=== PATIENT | female | born 1955 | race Caucasian/White ===

== ENCOUNTER 2019-10-20 05:52 | Inpatient (IN) | payer OTHER ==
[2019-10-20] MEDS ORDERED: CELECOXIB 200 MG CAPSULE ONE (06:16)
[2019-10-20] MEDS ORDERED: oxyCODONE HCL 10 MG SUSTAINED ACTING TABLET ONE (06:16)
[2019-10-20] MEDS ORDERED: PANTOPRAZOLE 40 MG TABLET ONE (06:16)
[2019-10-20 06:51] VITALS: BMI 26.2
[2019-10-20] MEDS ORDERED: SODIUM CHLORIDE 0.9% P/F 10 ML VIAL IJ ONE (07:10)
[2019-10-20] MEDS ORDERED: BUPIVACAINE LIPOSOME/PF (EXPAREL) 266 MG/20 ML VIAL ONE (07:10)
[2019-10-20] MEDS ORDERED: MIDAZOLAM HCL 2 MG/2 ML SINGLE DOSE VIAL ONE ×3 (07:10→07:36)
[2019-10-20] MEDS ORDERED: TRANEXAMIC ACID 1000 MG/10 ML VIAL ONE ×3 (07:14→10:21)
[2019-10-20] MEDS ORDERED: VANCOMYCIN 1,000 MG VIAL (RESTRICTED TO ID ONLY) ONE (07:14)
[2019-10-20] MEDS ORDERED: ceFAZolin SODIUM 1 GM VIAL ONE ×2 (07:14→07:36)
[2019-10-20] MEDS ORDERED: DEXAMETHASONE SOD PHOSPHATE/PF 10 MG/ML SDV ONE (07:25)
[2019-10-20] MEDS ORDERED: LIDOCAINE 1% P/F 10 MG/ML VIAL ONE (07:26)
[2019-10-20] MEDS ORDERED: DEXAMETHASONE SOD PHOSPHATE 4 MG/1 ML VIAL ONE (07:36)
[2019-10-20] MEDS ORDERED: LIDOCAINE HCL/PF 2% SDV 5ML VIAL ONE (07:36)
[2019-10-20] MEDS ORDERED: PROPOFOL 20 ML ONE ×3 (07:36)
[2019-10-20] MEDS ORDERED: EPHEDRINE SULFATE/0.9% NACL/PF 50 MG/10 ML SYRINGE NR ONE (07:36)
[2019-10-20] MEDS ORDERED: ONDANSETRON 4 MG/2 ML VIAL ONE (07:36)
--- NOTE | 2019-10-20 07:47 | HP ---
Admitting History and Physical - Admission Chief Complaint: right hip ostesoarthritis x years History of Present Illness: 64 year old female presents in regard to their right hip. Long-standing history of right hip osteoarthritis. Patient complains of pain, limited range of motion , difficulty ambulating, and difficulty with activities of daily living. Patient has failed conservative treatment options including PO medications, activity modification, injections, and exercise programs. At this point, patient like to proceed with surgical intervention, right total hip arthroplasty MAKOplasty. History Source: Patient - Past Medical History ...: No Musculoskeletal: Yes: Osteoarthritis - Past Surgical History Additional Past Surgical History: See history & physical. - Smoking History Smoking history: Current every day smoker Have you smoked in the past 12 months: Yes Aproximately how many cigarettes per day: 10 - Alcohol/Substance Use Hx Alcohol Use: No Home Medications - Allergies Allergies/Adverse Reactions: Allergies Allergy/AdvReac Type Severity Reaction Status Date / Time No Known Allergies Allergy Verified 10/20/19 06:46 - Home Medications Home Medications: Ambulatory Orders Acetaminophen [Tylenol -] 1,000 mg PO PRN PRN 10/20/19 Review of Systems - Review of Systems Musculoskeletal: reports: Decreased ROM (right hip), Joint Pain (right hip) Physical Examination Vital Signs: Vital Signs Temperature 97.8 F 10/20/19 06:49 Pulse Rate 72 10/20/19 06:49 Respiratory Rate 16 10/20/19 06:49 Blood Pressure 119/79 10/20/19 06:49 O2 Sat by Pulse Oximetry (%) 95 10/20/19 07:01 Constitutional: Yes: Well Nourished, No Distress Eyes: Yes: Conjunctiva Clear HENT: Yes: Atraumatic Neck: Yes: Supple Cardiovascular: Yes: Regular Rate and Rhythm Respiratory: Yes: Regular Gastrointestinal: Yes: Soft ...Rectal Exam: Yes: Deferred Musculoskeletal: Yes: Joint Stiffness (right hip), Other (LROM right hip) Assessment/Plan 64 year old female presents in regard to their right hip. Long-standing history of right hip osteoarthritis. Patient complains of pain, limited range of motion , difficulty ambulating, and difficulty with activities of daily living. Patient has failed conservative treatment options including PO medications, activity modification, injections, and exercise programs. At this point, patient like to proceed with surgical intervention, right total hip arthroplasty MAKOplasty. Pros, cons, risks, benefits, and alternatives of a right total hip arthroplasty MAKOplasty were discussed with the patient at length. Patient confirms their understanding and consents to proceed with a right total hip arthroplasty MAKOplasty.
[2019-10-20] MEDS ORDERED: oxyCODONE HCL 10 MG SUSTAINED ACTING TABLET PO ONE (08:00)
[2019-10-20] MEDS ORDERED: CEFAZOLIN 2 GM in DEXTROSE 5%-WATER - 50 ML IVPB ONE (08:00)
[2019-10-20] MEDS ORDERED: PANTOPRAZOLE 40 MG TABLET PO ONE (08:00)
[2019-10-20] MEDS ORDERED: TRANEXAMIC ACID 1000 MG/10 ML VIAL IVPUSH ONE (08:00)
[2019-10-20] MEDS ORDERED: CELECOXIB 200 MG CAPSULE PO ONE (08:00)
[2019-10-20] MEDS ORDERED: BUPIVICAINE 0.25%/MORPH PF/KETOROLAC - 51ML DISP.SYRINGE IA ONE ×3 (08:00→10:13)
[2019-10-20] MEDS ORDERED: BUPIVACAINE HCL/PF 0.5% (5 MG/ML) 30 ML VIAL IJ ONE (08:30)
[2019-10-20] MEDS ORDERED: VANCOMYCIN 1,000 MG VIAL (RESTRICTED TO ID ONLY) IVPB ONE (10:11)
[2019-10-20] MEDS ORDERED: TRANEXAMIC ACID 1000 MG/10 ML VIAL IVPB ONE (10:11)
[2019-10-20] MEDS ORDERED: KETOROLAC TROMETHAMINE 30 MG/1 ML VIAL ONE (11:03)
[2019-10-20] MEDS ORDERED: ACETAMINOPHEN INJECTION 100 ML IVPB ONE (11:04)
[2019-10-20] MEDS ORDERED: traMADol HCL 50 MG TABLET ONE (11:04)
[2019-10-20] MEDS ORDERED: ONDANSETRON 4 MG/2 ML VIAL IVPUSH PRN ×2 (11:04→11:13)
[2019-10-20] MEDS ORDERED: oxyCODONE HCL 5 MG TABLET PO PRN (11:07)
--- NOTE | 2019-10-20 11:07 | OP ---
Operative Note - Note: Operative Date: 10/20/19 Pre-Operative Diagnosis: right hip OA Operation: right KELTON OLIVIA Post-Operative Diagnosis: Same as Pre-op Surgeon: Tato Patricia Medical Review Coordinator: Jodi Stoner Anesthesia: Spinal Estimated Blood Loss (mls): 200
[2019-10-20] MEDS ORDERED: MAGNESIUM HYDROX 2400MG/30ML ORAL SUSPENSION 30 ML CUP PO PRN (11:13)
[2019-10-20] MEDS ORDERED: MAG HYDROX/AL HYDROX/SIMETH 30 ML UNIT-DOSE CUP PO PRN (11:13)
[2019-10-20] MEDS ORDERED: LACTATED RINGERS SOLUTION 1,000 ML IV SCH ×2 (11:15)
[2019-10-20] MEDS: KETOROLAC TROMETHAMINE 30 MG/1 ML VIAL IVPUSH SCH ×3 (11:25→23:33)
[2019-10-20] MEDS: ACETAMINOPHEN 1000 MG/100 ML VIAL (NON FORMULARY) IVPB ONE (11:27)
[2019-10-20] MEDS: traMADol HCL 50 MG TABLET PO SCH ×3 (11:46→23:34)
--- NOTE | 2019-10-20 11:55 | SPEC ---
DATE OF OPERATION: 10/20/2019 PREOPERATIVE DIAGNOSIS: Right hip osteoarthritis. POSTOPERATIVE DIAGNOSIS: Right hip osteoarthritis. PROCEDURE: Right total hip replacement with MAKOplasty robotic navigation. ATTENDING: Maxime Denton MD SENIOR RESIDENT CARE DIRECTOR: LUIS San ANESTHESIA: Spinal plus sedation. ESTIMATED BLOOD LOSS: 200 mL. COMPLICATIONS: None. DISPOSITION: The patient was transferred to the PACU in stable condition. IMPLANTS USED: Monse Accolade II size 8 femoral component, Monse Trident II 54-mm acetabular component with MDM bipolar head ball and liner with inner ceramic +4-mm offset head ball. INDICATIONS: This is a 64-year-old female who presented to the office complaining of severe right hip pain. She was seen and examined by Dr. Denton and diagnosed with severe right hip osteoarthritis. The patient was initially treated conservatively with nonoperative management, but continued to have severe pain and ambulatory dysfunction. She was, therefore, indicated for a right total hip replacement. The risks, benefits, and alternatives to the procedure were explained to the patient in great detail, and she elected to proceed with the surgery. On the day of surgery, the patient was taken to the operating room and placed on the OR table. Spinal anesthesia was administered by the anesthesiologist. The patient was then positioned in the lateral decubitus position on the table and all bony prominences were padded. An axillary roll was placed. The operative hip was then prepped and draped in the usual sterile fashion and intravenous antibiotics were given for infection prophylaxis. A surgical time-out was then performed with the team, and the patients identity, procedure, side, availability of implants, and the administration of antibiotics were confirmed. An approximately 15-cm longitudinal incision was made through the skin centered on the greater trochanter of the hip. This dissection was carried down through the subcutaneous tissues to the deep fascia. This fascia was then incised and a Cobra was placed around the inferior femoral neck. Electrocautery was used to reflect the anterior 40% of the gluteus medius and minimus starting at the musculotendinous junction and leaving a cuff for closure. This was reflected to reveal the capsule of the hip joint. An anterior capsulectomy was performed and the femoral head and neck were visualized. Grade 4 changes were noted diffusely throughout the joint. At this point, three small stab incisions were made superior to the main incision along the iliac crest. Three self-drilling Steinmann pins were then placed and the SquareHub pelvic array was attached. Reference points on the limb were then entered into the robotic device and the limb length deficiency, offset, and femoral neck resection level were then calculated by the software. The hip was then dislocated with traction and external rotation. An oscillating saw was used to make the femoral neck cut at the level previously templated, and the femoral head was removed. Attention was then turned to the acetabulum. Retractors were then placed around the acetabulum and the labrum was removed. An acetabular checkpoint pin and the SquareHub software were used to register the contours of the acetabulum. The acetabulum was then reamed in a single stage to the preoperatively templated size using the Eddie robotic arm. The appropriately sized cup was then impacted and had solid fixation as well as the preset inclination and version of 40 and 20 degrees, respectively. A polyethylene liner was then placed in the cup. Attention was then turned back to the femur, which was externally rotated for improved visualization. A femoral neck elevator was used to present the femoral neck cut, a box osteotome was used to enter the femoral canal, and a canal finder was used to go down the femoral shaft. The Eddie broaches were used sequentially until the optimal scratch fit was achieved. This correlated with the preoperatively templated size. From here, several different offset head and neck configurations were tested until excellent stability and length were obtained. These measurements were quantified using the SquareHub software. All trial components were then removed, the femur was copiously irrigated, and the final components were placed. Leg length and stability were checked again and found to be excellent. Irrigation was performed again. Wound closure was started by repairing the abductor muscles with a no. 2 FiberWire stitch in a Krackow configuration passed through bone tunnels in the greater trochanter and tied over a bony bridge. This repair was then reinforced with a 0 V-Loc 180 barbed suture. Next, no. 1 Polysorb and 0 V-Loc 180 were used to close the fascia. The deep subcutaneous tissue was closed with no. 1 Polysorb sutures, and 2-0 Polysorb was used for the superficial subcutaneous tissue. The skin was closed using both 3-0 V-Loc 90 suture in a running subcuticular fashion and SwiftSet skin adhesive. The Eddie array and pins were removed from the iliac crest and the stab incision sites were irrigated and closed with 4-0 Polysorb sutures and SwiftSet skin adhesive. Once this was completed, a sterile dressing was applied. The patient was then awakened and taken to the PACU in stable condition. ADDENDUM: After final implants were placed, a dilute Betadine soak was performed for 3 minutes. Following this, the wound was thoroughly irrigated with normal saline via pulsatile lavage, and wound closure was begun. MAXIME DENTON M.D. SONG/[id number]
[2019-10-20] MEDS: oxyCODONE HCL 5 MG TABLET PO PRN ×3 (13:28→20:14)
[2019-10-20] MEDS: ACETAMINOPHEN 325 MG TABLET (FP) PO SCH ×2 (17:50→23:34)
[2019-10-20] MEDS: CEFAZOLIN 2 GM/D5W 2 GM/50 ML ML IVPB SCH (17:52)
[2019-10-20] MEDS ORDERED: DEXAMETHASONE SOD PHOSPHATE 10 MG/1 ML VIAL IVPB ONE (20:00)
[2019-10-20] MEDS: GABAPENTIN 300 MG CAPSULE PO SCH (21:36)
[2019-10-20] MEDS: CELECOXIB 200 MG CAPSULE PO SCH (21:36)
[2019-10-20] MEDS: oxyCODONE HCL 10 MG SUSTAINED ACTING TABLET PO SCH (21:36)
[2019-10-20] MEDS: ASCORBIC ACID 500 MG TABLET (FP) PO SCH (21:36)
[2019-10-20] MEDS: SENNOSIDES/DOCUSATE COMBO (SENNA PLUS) TABLET (UD) PO SCH (21:36)
[2019-10-21] MEDS: CEFAZOLIN 2 GM/D5W 2 GM/50 ML ML IVPB SCH (01:13)
[2019-10-21] MEDS: KETOROLAC TROMETHAMINE 30 MG/1 ML VIAL IVPUSH SCH ×3 (06:14→17:02)
[2019-10-21] MEDS: ACETAMINOPHEN 325 MG TABLET (FP) PO SCH ×3 (06:15→17:03)
[2019-10-21] MEDS: traMADol HCL 50 MG TABLET PO SCH ×3 (06:15→17:02)
[2019-10-21 07:34] LABS: HEMATOCRIT 34.2 % (32.4-45.2); HEMOGLOBIN 11.6 GM/dl (10.7-15.3); MCHC 33.9 g/dl (32.0-36.0); MEAN CELL VOLUME 91.4 fl (80-96); MEAN PLT VOLUME 7.4 fl (7.5-11.1); PLATELET COUNT 259 K/MM3 (134-434); RBC 3.74 M/mm3 (3.60-5.2); RDW 11.7 % (11.6-15.6)
[2019-10-21 07:37] LABS: CALCIUM 8.4 mg/dl (8.5-10); CREATININE 0.8 mg/dl (0.55-1.3); POTASSIUM 4.5 mmol/L (3.5-5.1)
[2019-10-21] MEDS: ASPIRIN 325 MG TABLET PO SCH (08:48)
[2019-10-21] MEDS: SENNOSIDES/DOCUSATE COMBO (SENNA PLUS) TABLET (UD) PO SCH ×2 (09:35→21:48)
[2019-10-21] MEDS: GABAPENTIN 300 MG CAPSULE PO SCH ×2 (09:35→21:50)
[2019-10-21] MEDS: CELECOXIB 200 MG CAPSULE PO SCH ×2 (09:36→21:49)
[2019-10-21] MEDS: ASCORBIC ACID 500 MG TABLET (FP) PO SCH ×2 (09:36→21:49)
[2019-10-21] MEDS: PANTOPRAZOLE 40 MG TABLET PO SCH (09:36)
[2019-10-21] MEDS: MULTIVITAMINS (DAILY MVI) TABLET (FP) PO SCH (09:36)
[2019-10-21] MEDS: oxyCODONE HCL 10 MG SUSTAINED ACTING TABLET PO SCH ×2 (09:36→21:48)
--- NOTE | 2019-10-21 14:04 | PN ---
Progress Note (short form) - Note Progress Note: ANESTHESIA POSTOP 64 yo female POD#1 s/p OLIVIA Sitting in chair, tolerating PO, pain adequately controlled VSS, Afebrile Continue current care, No anesthetic complications, encouraged IS and active participation in PT
--- NOTE | 2019-10-21 17:18 | PN ---
Progress Note (short form) - Note Progress Note: Pt seen and examined. Doing well. AVSS Selected Entries 10/21/19 10/21/19 08:07 14:01 Temperature 97.6 F Pulse Rate 67 Respiratory 18 Rate Blood Pressure 99/56 L O2 Sat by Pulse 97 Oximetry (%) Oxygen Delivery Room Air Method Laboratory Tests 10/21/19 10/21/19 07:00 07:00 WBC 13.0 H Hgb 11.6 Hct 34.2 Plt Count 259 Sodium 132 L Potassium 4.5 Chloride 102 Carbon Dioxide 24 Anion Gap 6 L BUN 15.0 Creatinine 0.8 Est GFR (CKD-EPI)AfAm 91.58 Est GFR (CKD-EPI)NonAf 79.01 Random Glucose 133 H Calcium 8.4 L Gen: NAD RLE: c/d/i, NVID A/P POD#1 s/p R OLIVIA PT/OOB - WBAT RLE D/C home in AM
--- NOTE | 2019-10-21 17:23 | DS ---
Physical Examination Vital Signs: Vital Signs Temperature 97.6 F 10/21/19 14:01 Pulse Rate 67 10/21/19 14:01 Respiratory Rate 18 10/21/19 14:01 Blood Pressure 99/56 L 10/21/19 14:01 O2 Sat by Pulse Oximetry (%) 93 L 10/21/19 14:01 Labs: CBC, BMP 10/21/19 07:00 10/21/19 07:00 Discharge Summary Problems reviewed: Yes Reason For Visit: UNIL PRIMARY OSTEOARTHRITIS RIGHT HIP Current Active Problems Osteoarthritis of right hip (Acute) Procedures: Principal: right KELTON OLIVIA Hospital Course: Admitted for elective surgery. Procedure performed without complications. Pt received postoperative antibiotic prophylaxis and DVT ppx. Ambulated with physical therapy. Stable for discharge home with outpatient followup. Condition: Stable - Instructions Diet, Activity, Other Instructions: Dr Patricia - Hip Replacement Instructions Keep the Aquacel dressing on until removed by Dr. Patricia in the office - it is antibacterial and waterproof and you can shower with it on. Call the office for a follow-up appointment with Dr. Patricia in 2 weeks. [phone] Take one Aspirin 325mg daily for 6 weeks to prevent blood clots in your legs. Take one Pantoprazole 40mg daily for 6 weeks to protect against heartburn and ulcers. Take Cephalexin (antibiotic) 3x/day for 10 days to help prevent skin infection. Take Celebrex 200mg twice daily for 30 days to reduce swelling and inflammation. Take a multivitamin, stool softener and extra Vitamin C supplement daily. For pain: *Mild pain (1-3/10): Take 1 Tramadol tablet every 4 hours as needed. Moderate pain (4-6/10): Take 1 Tramadol tablet and 1 Percocet tablet every 4 hours as needed. Severe pain (7-10/10): Take 1 Tramadol tablet and 2 Percocet tablets every 4 hours as needed. Activity: You can put as much weight on the operative leg as you want. For the first 6 weeks, all you need to do is walk around the house, go up/down stairs, and sit down/get up. After 6 weeks when everything is healed (and bone has grown into the implant) you will be sent for more intensive outpatient physical therapy. Always use a walker or cane for balance and to prevent falls. Expect to see swelling / bruising from the operative site all the way down to your toes. Wear the Compression stocking on the operative side during the day to minimize how much swelling there is in your foot/ankle. Don't wear the stocking at night. You don't have to wear the stocking on the other side. Disposition: [facility]NS/HOME HEALTH CARE - Home Medications Comprehensive Discharge Medication List: Ambulatory Orders Ascorbic Acid [Vitamin C -] 500 mg PO BID tablet 10/21/19 Aspirin [ASA -] 325 mg PO DAILY@0800 tablet 10/21/19 Celecoxib [CeleBREX -] 200 mg PO BID #60 capsule 10/21/19 Cephalexin Monohydrate [Keflex -] 500 mg PO TID #30 capsule 10/21/19 Multivitamins [Multivit ([facility] Formulary)] 1 tab PO DAILY tab 10/21/19 Oxycodone HCl/Acetaminophen [Percocet 5-325 mg Tablet] 1 - 2 tab PO Q4H PRN #60 tablet MDD 10 10/21/19 Pantoprazole Sodium [Protonix -] 40 mg PO DAILY #40 tablet.ec 10/21/19 Sennosides/Docusate Sodium [Pericolace -] 2 tablet PO BID tablet 10/21/19 traMADol HCL [Ultram -] 50 mg PO Q4H PRN #42 tablet MDD 6 10/21/19
[2019-10-22] MEDS: traMADol HCL 50 MG TABLET PO SCH ×3 (00:35→07:28)
[2019-10-22] MEDS: ACETAMINOPHEN 325 MG TABLET (FP) PO SCH ×3 (00:35→07:28)
[2019-10-22 06:34] VITALS: BP 122/65; PULSE 76; TEMP 98
[2019-10-22] MEDS: ACETAMINOPHEN 1000 MG/100 ML VIAL (NON FORMULARY) IVPB ONE (07:29)
[2019-10-22] MEDS: KETOROLAC TROMETHAMINE 30 MG/1 ML VIAL IVPUSH SCH (07:29)
[2019-10-22] MEDS: ASPIRIN 325 MG TABLET PO SCH (08:04)
[2019-10-22 08:57] LABS: HEMATOCRIT 33.3 % (32.4-45.2); HEMOGLOBIN 11.3 GM/dl (10.7-15.3); MCHC 33.9 g/dl (32.0-36.0); MEAN CELL VOLUME 91.3 fl (80-96); MEAN PLT VOLUME 7.2 fl (7.5-11.1); PLATELET COUNT 203 K/MM3 (134-434); RBC 3.65 M/mm3 (3.60-5.2); WHITE BLOOD COUNT 6.4 K/mm3 (4.0-10.8)
[2019-10-22] MEDS: SENNOSIDES/DOCUSATE COMBO (SENNA PLUS) TABLET (UD) PO SCH (09:18)
[2019-10-22] MEDS: MULTIVITAMINS (DAILY MVI) TABLET (FP) PO SCH (09:18)
[2019-10-22] MEDS: PANTOPRAZOLE 40 MG TABLET PO SCH (09:18)
[2019-10-22] MEDS: GABAPENTIN 300 MG CAPSULE PO SCH (09:18)
[2019-10-22] MEDS: ASCORBIC ACID 500 MG TABLET (FP) PO SCH (09:18)
[2019-10-22] MEDS: oxyCODONE HCL 10 MG SUSTAINED ACTING TABLET PO SCH (09:19)
[2019-10-22] MEDS: CELECOXIB 200 MG CAPSULE PO SCH (09:23)
--- NOTE | 2019-10-24 15:56 | PATH ---
Surgical Pathology Report Patient Name: YESENIA FLOWER Med. Rec. #: [id number] /Age/Gender: 1955 (Age: 64) / F Account: [id number] Location: [facility] MED-SURG Taken: 10/20/2019 Received: 10/20/2019 Reported: 10/24/2019 Physicians: Tato Patricia M.D. Specimen(s) Received RIGHT FEMORAL HEAD Clinical History Right hip osteoarthritis Final Diagnosis BONE, FEMORAL HEAD, RIGHT, TOTAL HIP REPLACEMENT MAKOPASTY: BONE WITH DEGENERATIVE JOINT DISEASE. BONE MARROW WITH TRILINEAGE HEMATOPOIESIS. Electronically Signed Carissa Gonzalez M.D. Gross Description Received in formalin, labeled "right femoral head," is a 4.6 x 4.6 x 4.0 cm. femoral head with 1.2 cm in length portion of femoral length attached. The margin of resection is smooth. There is a 0.9 cm greatest dimension area of eburnation present. The remaining articular surface is andersen-yellow and diffusely granular. The underlying trabecular bone is yellow and hard. A printing supplies sales representative section is submitted in one cassette, following decalcification. /10/21/201910/21/2019
== END 2019-10-22 10:27 | disposition home health service (06) | DRG 301 ==
LOC: FM/S 05:52
PROVIDERS: ADMIT Student in an Organized Health Care Education/Training Program; ATTEND Student in an Organized Health Care Education/Training Program
PROC: 8E0W0CZ Robotic Assisted Procedure of Trunk Region, Open Approach (ICD-10-PCS; 2019-10-20)
PROC: 0SR903A Replacement of Right Hip Joint with Ceramic Synthetic Substitute, Uncemented, Open Approach (ICD-10-PCS; principal; 2019-10-20 08:32)
DX: M16.11 Unilateral primary osteoarthritis, right hip (principal); F17.210 Nicotine dependence, cigarettes, uncomplicated
CPT/HCPCS: 36415; 73502-TC-RT-FY; 80048; 85027; 88305-TC; 88311-TC; 94760; 97116-GP; 97163-GP; J0131; J1100